=== PATIENT | female | born 1990 | race Caucasian/White ===

== ENCOUNTER 2019-12-07 01:52 | Emergency (ER) | payer OTHER ==
[2019-12-07] MEDS ORDERED: CYCLOBENZAPRINE5 M3 PO (03:36)
[2019-12-07] MEDS ORDERED: Motrin,Rufen800 MG PO (03:36)
== END 2019-12-07 03:43 | disposition home or self-care (01) ==
LOC: ED 01:52
DX: S16.1XXA Strain of muscle, fascia and tendon at neck level, initial encounter (principal); M54.5 Low back pain; Z88.0 Allergy status to penicillin; Z88.1 Allergy status to other antibiotic agents; Z88.5 Allergy status to narcotic agent; Z88.8 Allergy status to other drugs, medicaments and biological substances; V48.6XXA Car passenger injured in noncollision transport accident in traffic accident, initial encounter; Y93.89 Activity, other specified; Y92.488 Other paved roadways as the place of occurrence of the external cause; Y99.8 Other external cause status

== ENCOUNTER 2020-12-08 04:46 | Emergency (ER) | payer OTHER, MEDICAID ==
[~2020-12-08 04:46] MED LIST: CYCLOBENZAPRINE5 M3 PO; Motrin,Rufen800 MG PO
== END 2020-12-08 05:32 | disposition home or self-care (01) ==
LOC: ED 04:46
DX: G47.00 Insomnia, unspecified (principal); F17.200 Nicotine dependence, unspecified, uncomplicated; Z88.0 Allergy status to penicillin

== ENCOUNTER 2021-11-11 15:11 | Emergency (ER) | payer OTHER ==
[~2021-11-11] VITALS: Wt 49.9 kg
== END 2021-11-11 19:22 | disposition home or self-care (01) ==
LOC: ED 15:11
DX: F43.9 Reaction to severe stress, unspecified (principal); Z88.0 Allergy status to penicillin; Z88.1 Allergy status to other antibiotic agents; Z88.8 Allergy status to other drugs, medicaments and biological substances

== ENCOUNTER 2022-02-19 20:41 | Emergency (ER) | payer OTHER | END 2022-02-20 06:18 | disposition home or self-care (01) | LOC: ED 20:41 | DX: F15.129 Other stimulant abuse with intoxication, unspecified (principal) ==

== ENCOUNTER 2022-02-20 13:07 | Emergency (ER) | payer OTHER ==
[~2022-02-20] VITALS: Wt 54.0 kg
== END 2022-02-20 21:30 | disposition left against medical advice (07) ==
LOC: ED 13:07
DX: F11.90 Opioid use, unspecified, uncomplicated (principal); Z88.0 Allergy status to penicillin; Z88.1 Allergy status to other antibiotic agents; Z88.8 Allergy status to other drugs, medicaments and biological substances

== ENCOUNTER 2022-04-23 11:14 | Emergency (ER) | payer OTHER ==
[~2022-04-23] VITALS: Ht 162.5 cm; Wt 56.7 kg
[2022-04-23 12:23] LABS: BILIRUBIN Negative (Negative); BLOOD 3+ (Negative); CLARITY Turbid (Clear); COLOR Dark Yellow (Yellow); GLUCOSE Negative (Negative); KETONE Trace (Negative); LEUKO ESTERASE 3+ (Negative); NITRITE Negative (Negative); SPECIFIC GRAVITY 1.015 (1.001-1.030)
[2022-04-23 12:39] LABS: RBC TNTC rbc/hpf (0-2); WBC TNTC wbc/hpf (0-5)
[2022-04-23 12:47] LABS: URINE AMPHETAMINES > 1000 (1000ng/ml); URINE BARBITURATES < 200 (200ng/ml); URINE BENZODIAZEPINES < 200 (200ng/ml); URINE CANNABINOIDS (THC) < 50 (50ng/ml); URINE COCAINE < 300 (300ng/ml); URINE METHADONE < 300 (300ng/ml); URINE OPIATES < 300 (300ng/ml); URINE PHENCYCLIDINE < 25 (25ng/ml)
[2022-04-23 12:53] LABS: MEAN CORPUSCULAR HGB 26.2 pg (27.0-31.0); MEAN CORPUSCULAR HGB CONC 32.8 g/dl (33.0-37.0); MEAN PLATELET VOLUME 10.5 fl (9.6-12.3); PLATELET COUNT AUTOMATED 86 10*3/uL (130-400); RED BLOOD COUNT 2.44 10*6/uL (4.10-5.10); RED CELL DISTRI WIDTH 15.2 % (0-14.5); WHITE BLOOD COUNT 6.8 10*3/uL (4.8-10.8)
[2022-04-23 12:54] LABS: MEAN CELL VOLUME 79.9 fl (81.0-99.0)
[2022-04-23 12:56] LABS: HEMATOCRIT 19.5 % (37.0-47.0); MANUAL DIFF REFLEX YES
[2022-04-23 13:17] LABS: PLATELET SUFFICIENCY LOW (NORMAL); TOTAL CELLS COUNTED 100 #CELLS
[2022-04-23 13:18] LABS: BURR CELLS FEW
[2022-04-23 13:19] LABS: CREATININE 2.04 mg/dL (0.55-1.02); MICROCYTOSIS SLIGHT; POTASSIUM 3.8 mmol/L (3.5-5.1); TOTAL PROTEIN 6.3 gm/dL (6.4-8.2)
[2022-04-23 15:13] VITALS: BP 125/72
[2022-04-23 15:27] VITALS: BP 119/71
[2022-04-23 15:46] VITALS: BP 117/74
[2022-04-23 16:03] VITALS: BP 127/71
[2022-04-23] MEDS ORDERED: CLASSIC PRENAT1 EACH PO (17:00)
[2022-04-23] MEDS ORDERED: KEFLEX 500 MG E2 CAP PO (17:00)
[2022-04-23 17:04] VITALS: BP 122/68
== END 2022-04-23 17:08 | disposition left against medical advice (07) ==
LOC: ED 11:14
PROVIDERS: Emergency Medicine
DX: O23.92 Unspecified genitourinary tract infection in pregnancy, second trimester (principal); O99.322 Drug use complicating pregnancy, second trimester; Z3A.24 24 weeks gestation of pregnancy; F17.200 Nicotine dependence, unspecified, uncomplicated; Z88.0 Allergy status to penicillin; Z88.1 Allergy status to other antibiotic agents; Z88.8 Allergy status to other drugs, medicaments and biological substances